=== PATIENT | female | born 1995 | race Caucasian/White ===

== ENCOUNTER 2025-01-13 12:37 | Emergency (ER) | payer BC, MEDICARE ==
[~2025-01-13] VITALS: Ht 162.6 cm; Wt 66.7 kg
[~2025-01-13 12:37] MED LIST: PRENATAL FORMU1 EACH
[2025-01-13 12:43] VITALS: PULSE 129; RESP 16; TEMP 99.6; O2SAT 98
[2025-01-13] MEDS ORDERED: AMOX TR-K CLV1 EAC2 PO (13:02)
== END 2025-01-13 13:06 | disposition home or self-care (01) ==
LOC: ER 12:46
DX: R50.9 Fever, unspecified (principal); J02.0 Streptococcal pharyngitis
CPT/HCPCS: 99283

== ENCOUNTER → 2025-06-17 | Day surgery (SDC) | payer BC ==
[2025-06-15 11:48] LABS: BASOPHILS % 0.5 % (0.0-1.0); EOSINOPHILS % 0.7 % (0.0-6.0); LYMPHOCYTES % 25.4 % (18.0-39.1); MONOCYTES % 6.3 % (4.4-11.3); NEUTROPHILS % 66.6 % (38.7-80.0); RED CELL DISTRIBUTION WIDTH 12.4 % (11.7-14.4)
[2025-06-15 12:10] LABS: LEUKOCYTE ESTERASE ,URINE SMALL (NEGATIVE); PROTEIN,URINE DIPSTICK 1+ (NEGATIVE); URINE UROBILINOGEN 1 mg/dL (0.2 - 1)
[2025-06-15 12:18] LABS: EST GLOMERULAR FILTRATION RATE 84.0 ML/MIN (>=60)
[2025-06-15 12:56] LABS: EPITHELIAL CELLS,URINE FEW /LPF; WBC,URINE (MAN) 21-50 /HPF (0-5)
[~2025-06-17] MED LIST changes: +AMOX TR-K CLV1 EAC2 PO; +CEFTRIAXONE 1 GM VIAL ONE; +DEXAMETHASONE SOD PHOS INJ 4 MG/ML SDV ONE; +FENTANYL CITRATE/PF 100MCG/2 ML INJ ONE; +LIDOCAINE HCL 2% LOCAL INJ 5 ML SDV VIAL INJ ONE; +MIDAZOLAM HCL 2 MG/2 ML VIAL ONE; +ONDANSETRON HCL INJ 2MG/ML 2ML 2 MG/ML VIAL ONE; +PROPOFOL IV EMULSION 10 MG/ML 20 ML VIAL ONE; +ROCURONIUM BROMIDE 1 ML IV ONE
[2025-06-17] MEDS: HYDROMORPHONE 1MG/1ML INJ ONE (11:13)
[2025-06-17 12:24] VITALS: BP 119/76; PULSE 68; RESP 18; O2SAT 100
[2025-06-17] MEDS: LACTATED RINGER'S 1,000 ML ONE (13:08)
== END | disposition home or self-care (01) ==
LOC: OR 07:16
PROVIDERS: ATTEND Surgery
DX: K80.10 Calculus of gallbladder with chronic cholecystitis without obstruction (principal); N39.0 Urinary tract infection, site not specified; F41.9 Anxiety disorder, unspecified; Z01.812 Encounter for preprocedural laboratory examination
CPT/HCPCS: 36415; 47562; 80053; 81001; 81025; 85025; 88304; C1766; J0696; J1100; J1171; J2003; J2250; J2405; J2704; J3010; J7121

== ENCOUNTER 2025-07-16 07:37 | Emergency (ER) | payer BC ==
[~2025-07-16] VITALS: Ht 160 cm; Wt 69.4 kg
[~2025-07-16 07:37] MED LIST changes: -CEFTRIAXONE 1 GM VIAL ONE; -DEXAMETHASONE SOD PHOS INJ 4 MG/ML SDV ONE; -FENTANYL CITRATE/PF 100MCG/2 ML INJ ONE; -LIDOCAINE HCL 2% LOCAL INJ 5 ML SDV VIAL INJ ONE; -MIDAZOLAM HCL 2 MG/2 ML VIAL ONE; -ONDANSETRON HCL INJ 2MG/ML 2ML 2 MG/ML VIAL ONE; -PROPOFOL IV EMULSION 10 MG/ML 20 ML VIAL ONE; -ROCURONIUM BROMIDE 1 ML IV ONE
[2025-07-16 08:15] LABS: BASOPHILS % 0.4 % (0.0-1.0); EOSINOPHILS % 0.7 % (0.0-6.0); LYMPHOCYTES % 21.2 % (18.0-39.1); MONOCYTES % 5.9 % (4.4-11.3); NEUTROPHILS % 71.4 % (38.7-80.0); RED CELL DISTRIBUTION WIDTH 11.9 % (11.7-14.4)
[2025-07-16 08:28] LABS: LEUKOCYTE ESTERASE ,URINE TRACE (NEGATIVE); PROTEIN,URINE DIPSTICK NEGATIVE (NEGATIVE); URINE UROBILINOGEN 1 mg/dL (0.2 - 1)
[2025-07-16] MEDS ORDERED: IOPAMIDOL 370 MG/ML 100 ML INFUS..BTL INJ ONE (08:28)
[2025-07-16] MEDS: ONDANSETRON HCL INJ 2MG/ML 2ML 2 MG/ML VIAL IV STA (08:30)
[2025-07-16] MEDS: SODIUM CHLORIDE 0.9% 1000ML 1,000 ML IV STA (08:30)
[2025-07-16] MEDS: KETOROLAC TROMETHAMINE 30 MG/ML VIAL IV STA (08:30)
[2025-07-16 08:43] LABS: EST GLOMERULAR FILTRATION RATE 115 ML/MIN (>=60)
[2025-07-16 08:48] LABS: INR 1.07
[2025-07-16 08:58] LABS: WBC,URINE (MAN) 21-50 /HPF (0-5)
[2025-07-16 08:59] LABS: EPITHELIAL CELLS,URINE FEW /LPF
[2025-07-16] MEDS ORDERED: DICYCLOMINE HCL20 MG PO (10:16)
[2025-07-16] MEDS ORDERED: CEFDINIR300 MG PO (10:16)
[2025-07-16] MEDS ORDERED: ONDANSETRON ODT4 MG PO (10:16)
[2025-07-16] MEDS ORDERED: PYRIDIUM100 MG PO (10:16)
[2025-07-16 10:30] VITALS: PULSE 82; RESP 16; TEMP 98.1; O2SAT 100
== END 2025-07-16 10:32 | disposition home or self-care (01) ==
LOC: ER 07:46
DX: R10.30 Lower abdominal pain, unspecified (principal); N39.0 Urinary tract infection, site not specified; R11.0 Nausea; R19.7 Diarrhea, unspecified
CPT/HCPCS: 36415; 74177; 80053; 81001; 84702; 85025; 85610; 85730; 99284; J1885; J2405; J7030; Q9967